=== PATIENT | male | born 1945 | race Caucasian/White ===

== ENCOUNTER 2021-10-19 08:51 | Emergency (ER) | payer MEDICARE ==
[2021-10-19] MEDS ORDERED: Norepinephrine 8 MG/0.9% NS 250 ML ONE (09:04)
[2021-10-19 09:19] LABS: Actual Bicarbonate (HCO3v) 10 mEq/L (22-28); Base Excess -25.9 mEq/L (-2.0 to +3.0); Calcium, Ionized (venous) 1.23 mmol/L (1.16-1.32); Chloride (VBG) 99 mmol/L (98-106); Hemoglobin (Hb) 9.6 g/dL (12.6-17.4); Potassium (VBG) 6.69 mmol/L (3.70-5.30); Puncture Site Other Site; Sodium 132.2 mmol/L (133-146); pH (venous) 6.72 (7.32-7.43)
[2021-10-19 09:19] LABS: Hemoglobin 8.9 g/dL (13.5-17.5); Mean Corpuscular HGB CONC 29.3 g/dL (32.0-36.0); Mean Corpuscular Hemoglobin 26.6 pg (27.0-33.0); Mean Platelet Volume 9.2 fl (7.4-10.4); Platelet Count 175 10x3/uL (150-450); RBC Distribution Width 12.9 % (11.5-14.5); Red Blood Cell (RBC) Count 3.34 10x6/uL (4.32-5.72); White Blood Cell (WBC) Count 13.1 10x3/uL (3.5-10.5)
[2021-10-19 09:32] LABS: ALT (SGPT) 295 U/L (8-55); AST (SGOT) 487 U/L (5-34); Albumin 2.7 g/dL (3.4-4.8); Alkaline Phosphatase 82 U/L (40-110); Anion Gap 33 mmol/L (10-20); BUN (Urea Nitrogen) 60 mg/dL (8.4-25.7); Bilirubin, Total 0.4 mg/dL (0.2-1.2); Calc. Creatinine Clearance 0 mL/min (70-130); Calcium 9.4 mg/dL (7.8-10.44); Carbon Dioxide 12 mmol/L (23-31); Chloride 100 mmol/L (98-107); Globulin 2.4 g/dL (2.4-3.5); Glucose 116 mg/dL (83-110); Lipase 28 U/L (8-78); Potassium 6.4 mmol/L (3.5-5.1); Protein, Total 5.1 g/dL (5.8-8.1); Sodium 139 mmol/L (136-145)
[2021-10-19 09:37] LABS: Band 8 % (5-11); Lymphocytes 46 % (21-51); Monocytes 4 % (0-10); Myelocyte 2 % (0-0)
[2021-10-19 09:45] LABS: Neutrophil 40 % (42-75)
[2021-10-19 09:48] LABS: Burr Cells SLIGHT = 2-5 cells (100X) (0-1/hpf); Ovalocytes SLIGHT = 2-5 cells (100X) (0-1/hpf); Platelet Morphology Comment Appears Adequate; Poikilocytosis SLIGHT = 6-15 cells (100X) (0-5/hpf)
[2021-10-19 09:49] LABS: CKMB 4.9 ng/mL (0-6.6)
== END 2021-10-19 09:20 | disposition expired ==
LOC: CSHERS 08:51
DX: I46.9 Cardiac arrest, cause unspecified (principal); Z86.16 Personal history of COVID-19
CPT/HCPCS: 36415; 36556; 51702; 71045; 80053; 82553; 82805; 83605; 83690; 84484; 85025; 86850; 86900; 86901; 92950; 94002; 94760; 96374; 96375